=== PATIENT | female | born 1990 | race Hispanic/Latino ===

== ENCOUNTER 2021-09-03 02:30 | Emergency (ER) | payer SELFPAY ==
[2021-09-03] MEDS ORDERED: IBUPROFEN 800 MG TAB PO STA (07:53)
[2021-09-03] MEDS ORDERED: ACETAMINOPHEN 500 MG TAB PO STA (07:53)
--- NOTE | 2021-09-03 08:04 | Emergency Department Report ---
ED General Adult HPI - General Chief complaint: Earache Stated complaint: EARACHE Time Seen by Provider: 09/03/21 06:56 Source: patient Mode of arrival: Ambulatory Limitations: No Limitations - History of Present Illness Initial comments: 30-year-old female patient presents with complaints of right ear pain for the past day. Patient states her pain began after she cleaning her ear with a Q-tip. She denies any hearing loss but does admit to some ringing. She rates her pain as a 9/10 in severity. Patient denies any fever/chills/sweats, h eadache, or vision changes. She has not tried any medications for symptoms. Allergies include Augmentin and Ceftin per patient. He denies any other past medical history - Related Data Previous Rx's Medication Instructions Recorded Last Taken Type Doxycycline Monohydrate 100 mg PO BID 10 Days #20 capsule 09/03/21 Unknown Rx [Doxycycline Monohydrate CAP] Ibuprofen [Motrin 800 MG tab] 800 mg PO Q8HR PRN #20 tablet 09/03/21 Unknown Rx Allergies Allergy/AdvReac Type Severity Reaction Status Date / Time acetaminophen [From Vicodin] Allergy Vomiting Verified 09/03/21 03:19 amoxicillin [From Augmentin] Allergy Rash Verified 09/03/21 03:19 clavulanic acid Allergy Rash Verified 09/03/21 03:19 [From Augmentin] codeine Allergy Rash Verified 09/03/21 03:19 hydrocodone [From Vicodin] Allergy Vomiting Verified 09/03/21 03:19 sulfamethoxazole Allergy Itching Verified 09/03/21 03:19 [From Bactrim] trimethoprim [From Bactrim] Allergy Itching Verified 09/03/21 03:19 ED Review of Systems ROS: Stated complaint: EARACHE Other details as noted in HPI Constitutional: denies: chills, fever, malaise ENT: dental pain. denies: throat pain Respiratory: denies: cough Cardiovascular: denies: chest pain Skin: denies: rash, lesions, change in color Neurological: denies: headache ED Past Medical Hx - Past Medical History Previous Medical History?: No - Medications Home Medications: Home Medications Medication Instructions Recorded Confirmed Last Taken Type Doxycycline Monohydrate 100 mg PO BID 10 Days #20 capsule 09/03/21 Unknown Rx [Doxycycline Monohydrate CAP] Ibuprofen [Motrin 800 MG tab] 800 mg PO Q8HR PRN #20 tablet 09/03/21 Unknown Rx ED Physical Exam - General Limitations: No Limitations - Head Head exam: Present: atraumatic, normocephalic - Expanded ENT Exam Expanded Ear exam: Absent: auricular trauma TM/Canal exam: Erythema: Right TM, Bulging: Right TM, Effusion: Right TM (With possible minimal purulence noted to fluid) Teeth exam: Present: dental caries Throat exam: Positive: normal inspection - Respiratory Respiratory exam: Present: normal lung sounds bilaterally. Absent: respiratory distress - Cardiovascular Cardiovascular Exam: Present: regular rate ED Course Vital Signs 09/03/21 03:16 Temperature 98.7 F Pulse Rate 88 Respiratory 14 Rate Blood Pressure 105/61 [Left] O2 Sat by Pulse 97 Oximetry ED Medical Decision Making - Medical Decision Making 30-year-old female patient presents with complaints of right ear pain for the past day. Patient states her pain began after she cleaning her ear with a Q-tip. She denies any hearing loss but does admit to some ringing. She rates her pain as a 9/10 in severity. Patient denies any fever/chills/sweats, headache, or vision changes. She has not tried any medications for symptoms. Allergies include Augmentin and Ceftin per patient. He denies any other past medical history Right otitis media noted on exam with possible purulent effusion. Will treat patient with doxycycline which should also cover for H influenza source of infection. Patient to follow-up with primary care in 3 to 5 days, referral provided. Discussed in detail signs and symptoms that should prompt immediate return to the ED with patient who verbalizes understanding. She is otherwise well-appearing, her vitals are within normal limits, she is stable for discharge home. Critical care attestation.: If time is entered above; I have spent that time in minutes in the direct care of this critically ill patient, excluding procedure time. ED Disposition Clinical Impression: Right otitis media with effusion Disposition: 01 HOME / SELF CARE / HOMELESS Is pt being admited?: No Condition: Stable Instructions: Otitis Media, Adult Prescriptions: Doxycycline Monohydrate [Doxycycline Monohydrate CAP] 100 mg PO BID 10 Days #20 capsule Ibuprofen [Motrin 800 MG tab] 800 mg PO Q8HR PRN #20 tablet PRN Reason: pain Referrals: PRIMARY CARE, [Primary Care Provider] - 3-5 Days [facility] [Provider Group] - 3-5 Days [facility] [Outside] - 3-5 Days Forms: Work/School Release Form(ED)
[2021-09-03 08:17] VITALS: BP 132/80
== END 2021-09-03 08:17 | disposition home or self-care (01) ==
LOC: ED 02:30
DX: H65.91 Unspecified nonsuppurative otitis media, right ear (principal)
CPT/HCPCS: 99282